=== PATIENT | male | born 1960 | race African-American/Black ===

== ENCOUNTER 2017-03-31 20:51 | Emergency (ER) | payer MEDICAID ==
[~2017-03-31] VITALS: Ht 167.6 cm; Wt 79.5 kg
[~2017-03-31 20:51] MED LIST: baclofen; hydrocodone; lorazepam
[2017-03-31 21:20] VITALS: BP 124/69
[2017-03-31] MEDS ORDERED: TETANUS, DIPHTHERIA, PERTUSSIS VAC/PF 0.5ML (>7YR OLD) IM ONE (22:15)
[2017-03-31] MEDS ORDERED: LIDOCAINE HCL 1%/EPI 1:200,000 30 ML VIAL MC ONE (22:15)
[2017-03-31] MEDS ORDERED: BACITRACIN ZINC OINT UDPKT TOP ONE ×2 (22:15)
[2017-03-31] MEDS ORDERED: IBUPROFEN 600MG TABLET PO ONE (22:15)
[2017-03-31] MEDS ORDERED: HYDROCODONE/APAP 7.5/325MG 1 TAB TABLET PO ONE (22:45)
== END 2017-03-31 22:50 | disposition left against medical advice (07) ==
LOC: ER 21:01
DX: S01.91XA Laceration without foreign body of unspecified part of head, initial encounter (principal); Y08.89XA Assault by other specified means, initial encounter; Y93.89 Activity, other specified; Y92.89 Other specified places as the place of occurrence of the external cause; Y99.8 Other external cause status
CPT/HCPCS: 12001; 90471; 90715; 99283; 99284

== ENCOUNTER 2018-10-05 12:13 | Emergency (ER) | payer MEDICAID ==
[~2018-10-05] VITALS: Ht 165.1 cm; Wt 78.0 kg
[2018-10-05 13:43] VITALS: BP 127/81
== END 2018-10-05 13:43 | disposition home or self-care (01) ==
LOC: ER 12:42
DX: K04.7 Periapical abscess without sinus (principal); J44.9 Chronic obstructive pulmonary disease, unspecified; F17.210 Nicotine dependence, cigarettes, uncomplicated; Z98.1 Arthrodesis status
CPT/HCPCS: 99283